=== PATIENT | female | born 1960 | race Caucasian/White ===

== ENCOUNTER 2024-01-09 06:14 | Day surgery (SDC) | payer OTHER, SELFPAY ==
[2024-01-07 15:35] LABS: Absolute Lymphocytes (CBC) 2.5 K/uL (0.7-4.9); Lymphocytes % 33.6 % (15.3-44.8); MPV 7.8 fL (7.6-11.3); Platelets 258 thou/uL (152-406); RBC Red Blood Cell Count 4.64 M/uL (3.86-4.86)
--- NOTE | 2024-01-07 15:52 | RAD REPORT ---
EXAM DESCRIPTION: Ashkan Hernandez (2 Views)01/07/2024 3:27 pm CLINICAL HISTORY: Preop/hypertension COMPARISON: None FINDINGS: The lungs appear clear of acute infiltrate. The heart is normal size IMPRESSION: No acute abnormalities displayed
[2024-01-07 15:55] LABS: Albumin 3.5 g/dL (3.4-5.0); Bilirubin Direct 0.3 mg/dL (0-0.2); Bilirubin Indirect, Calculated 1.2 mg/dL (0.2-0.8); Bilirubin Total 1.5 mg/dL (0.2-1.0); Potassium 3.6 mEq/L (3.5-5.1); Protein, Total 7.4 g/dL (6.4-8.2)
[2024-01-09] MEDS ORDERED: CEFOXITIN SODIUM 1 GM/VIAL ONE (06:32)
[2024-01-09] MEDS: Ringers Lactate 1,000 ML IV ONE ×2 (06:48→08:48)
[2024-01-09] MEDS ORDERED: SUCCINYLCHOLINE 20 MG/ML (10 ML) IV ONE (07:15)
[2024-01-09] MEDS ORDERED: LIDOCAINE 2% MPF 5 ML VIAL ONE (07:21)
[2024-01-09] MEDS ORDERED: ONDANSETRON 4 MG/2 ML VIAL ONE (07:21)
[2024-01-09] MEDS ORDERED: MIDAZOLAM HCL 2 MG/2 ML INJ ONE (07:21)
[2024-01-09] MEDS ORDERED: propofoL 200 MG/20 ML VIAL IV ONE (07:21)
[2024-01-09] MEDS ORDERED: FENTANYL CITR 100 MCG/2 ML ONE (07:21)
[2024-01-09] MEDS ORDERED: ROCURONIUM 50 MG/5 ML VIAL IV ONE (07:21)
[2024-01-09] MEDS ORDERED: EPHEDRINE SULF 50 MG/ML VIAL ONE (07:53)
[2024-01-09] MEDS ORDERED: dexAMETHasone 10 MG/ML VIAL ONE (07:54)
[2024-01-09] MEDS: CIPROFLOXACIN 400mg IV 400 MG/200 ML BAG IV ONE (07:55)
[2024-01-09] MEDS ORDERED: NEOSTIGMINE 1 MG/ML -10 ML VIAL ONE (08:25)
[2024-01-09] MEDS ORDERED: GLYCOPYRROLATE 0.2 MG/ML SYR ONE (08:25)
[2024-01-09] MEDS ORDERED: KETOROLAC 30 MG/ML INJ ONE (08:36)
--- NOTE | 2024-01-09 08:41 | P.BOP ---
Preoperative diagnosis: symptomatic cholelithiasis Postoperative diagnosis: same Primary procedure: Laparoscopic cholecystectomy Estimated blood loss: <10cc Specimen: gb Findings: as above Anesthesia: General Complications: None Transferred to: Recovery Room Condition: Good
[2024-01-09] MEDS ORDERED: SUGAMMADEX SODIUM 200 MG/2 ML VIAL IV ONE (08:51)
[2024-01-09 09:45] VITALS: BP 121/74; TEMP 97.4; O2SAT 97
--- NOTE | 2024-01-09 18:40 | OP ---
Date of Procedure: 01/09/2024 Surgeon: Mikie Lemus MD Preoperative Diagnosis: Symptomatic cholelithiasis. Postoperative Diagnosis: Symptomatic cholelithiasis. Procedure: Laparoscopic cholecystectomy. Estimated Blood Loss: Less than 10 cc. Specimen: Gallbladder. Anesthesia: General plus local. Complications: None. Indications: This is a case of a 63-year-old patient who comes to us with above diagnosis. Fully ex plained the benefits, alternatives, and risks of laparoscopic possible open cholecystectomy, which in clude, but not limited to infection, bleeding, damage to adjacent structures, anesthesia complication , choledocholithiasis, bile leak, pancreatitis, [place], and even . She also understands this may no t relieve symptoms. She might need more than one surgical intervention. She understood, signed a co nsent. Procedure In Detail: The patient was brought to the operating room, placed in supine position. Anes thesia was done without complication. Abdominal area was prepped and draped in sterile fashion. Mar shelia 0.5% was injected for local anesthetic followed by sharp incision of the skin. In the periumbi lical region, incision was carried down to fascia, which was opened under direct vision. Peritoneum was encountered, opened under direct vision. Vicryl #1 was placed inside the fascia. Marizol trocar was carefully introduced. No bleeding was obtained. I placed 3 more trocars, 5 mm each one of them, 1 in epigastric area, 2 in the right upper quadrant using same technique, which consisted of local a nesthetic. Sharp incision of the skin, introduction of the trocars under direct vision. This allowe d me to put a grasper in the fundus of the gallbladder, another grasper in the infundibulum, retracte d the gallbladder in the inferolateral fashion exposing the triangle of Calot, obtaining critical vie w. The cystic duct and cystic artery were clearly identified circumferentially and a connection betw een those and the gallbladder were clearly identified. I proceeded to ligate those by using at least 3 clips proximal, 1 clip distal, ligation in middle. Same was done with the cystic artery. No bile leak, no bleeding. The gallbladder was removed from liver using Bovie cauterizer and removed from a bdominal cavity using EndoCatch through an umbilical incision. The area was inspected once again. N o bile leak. No bleeding. At that moment, I proceeded to remove the trocars under direct vision. D eflated the pneumoperitoneum. Closed the fascia with #1 Vicryl, irrigated subcutaneous tissue, close d with 3-0 chromic, and the skin was approximated. Sponge count and instrument counts were correct. Patient tolerated the procedure well. Patient was sent to recovery in stable condition. GUILLE/SUSIE Voice ID: [id number] Report ID: [id number]
== END 2024-01-09 10:37 | disposition home or self-care (01) ==
LOC: OR 06:14
PROVIDERS: ATTEND Surgery
PROC: 0FT44ZZ Resection of Gallbladder, Percutaneous Endoscopic Approach (ICD-10-PCS; principal; 2024-01-09 07:30)
DX: K80.10 Calculus of gallbladder with chronic cholecystitis without obstruction (principal); I10 Essential (primary) hypertension; M85.80 Other specified disorders of bone density and structure, unspecified site
CPT/HCPCS: 36415; 71046; 80048; 80076; 83690; 85025; 88304; J0694; J0744; J1100; J2001; J2250; J2405; J2704; J2710; J3010; J7120